=== PATIENT | male | born 1930 | race Caucasian/White ===

== ENCOUNTER 2016-08-03 18:21 | Emergency (ER) | payer OTHER ==
[~2016-08-03] VITALS: Ht 165.1 cm; Wt 68.0 kg
[2016-08-03 18:35] VITALS: BP 130/71; PULSE 71; RESP 16; TEMP 97; O2SAT 97
--- NOTE | 2016-08-03 19:15 | NUR ---
Pt placed in bed 3 and gowned up for examinination
--- NOTE | 2016-08-03 19:25 | NUR ---
pt brought to ED by with c/o swollen R lower face and R upper lip, numb, non-painful, occurred after having dinner. Pt denies foods that caused possible allergic reaction. A&Ox4, denies SOb or chestpain, denies N/V/D, will continue to monitor
--- NOTE | 2016-08-03 20:03 | NUR ---
md tian at bedside examining pt
--- NOTE | 2016-08-03 20:28 | NUR ---
Patient given written and verbal discharge instructions and verbalizes understanding. ER MD Hair discussed with patient the results and treatment provided. Patient in stable condition. ID arm band removed. Rx of prednisone given. Patient educated on pain management and to follow up with PMD. Pain Scale 0/10 Opportunity for questions provided and answered.
[2016-08-03 20:29] VITALS: BP 126/72; PULSE 68; RESP 16; TEMP 97; O2SAT 98
== END 2016-08-03 20:28 | disposition home or self-care (01) ==
LOC: EDBD 18:21 → SED 18:21
DX: T78.40XA Allergy, unspecified, initial encounter (principal); J44.9 Chronic obstructive pulmonary disease, unspecified; I10 Essential (primary) hypertension; M06.9 Rheumatoid arthritis, unspecified; Z90.79 Acquired absence of other genital organ(s); Z85.46 Personal history of malignant neoplasm of prostate; Z88.2 Allergy status to sulfonamides; X58.XXXA Exposure to other specified factors, initial encounter
CPT/HCPCS: 99283